=== PATIENT | female | born 1980 ===

== ENCOUNTER 2023-05-03 07:59 | Day surgery (SDC) | payer OTHER ==
[~2023-05-03] VITALS: Ht 162.6 cm; Wt 68.0 kg
[2023-05-03] MEDS ORDERED: PERCOCET 5-3251 EACH PO (10:47)
[2023-05-03] MEDS ORDERED: NEURONTIN300 MG PO (10:47)
[2023-05-03] MEDS ORDERED: COLACE100 MG PO (10:48)
== END 2023-05-03 17:55 | disposition home or self-care (01) ==
LOC: CIR.AMB 07:59
PROVIDERS: ATTEND Surgery
DX: K64.1 Second degree hemorrhoids (principal); K64.4 Residual hemorrhoidal skin tags; K62.5 Hemorrhage of anus and rectum; K62.89 Other specified diseases of anus and rectum; I10 Essential (primary) hypertension; Z20.822 Contact with and (suspected) exposure to COVID-19